=== PATIENT | female | born 1955 | race Caucasian/White ===

== ENCOUNTER 2020-08-21 09:51 | Outpatient (CLI) | payer OTHER ==
[~2020-08-21] VITALS: Ht 167.7 cm; Wt 60.1 kg
[2020-08-21 10:04] VITALS: BP 133/80
--- NOTE | 2020-08-21 10:51 | Diagnostic Imaging Report ---
INDICATION: Preop tongue mass. EXAMINATION: PA and lateral chest. FINDINGS: The heart size and pulmonary vascularity are normal. The lungs are clear. There are no effusions or pneumothoraces. IMPRESSION: Negative chest. Dictated by: Dictated on workstation # [id number]
== END 2020-08-21 10:45 | disposition home or self-care (01) ==
LOC: PREOP 09:51
PROVIDERS: ATTEND Otolaryngology Otolaryngology/Facial Plastic Surgery
DX: Z01.812 Encounter for preprocedural laboratory examination (principal); K14.8 Other diseases of tongue
CPT/HCPCS: 71046; 87081; 93005

== ENCOUNTER 2020-08-25 07:57 | Day surgery (SDC) | payer OTHER ==
[~2020-08-25] VITALS: Ht 167.7 cm; Wt 60.1 kg
[2020-08-25] VITALS (10 sets, daily range): BP systolic 124–144; BP diastolic 71–81
[2020-08-25] MEDS ORDERED: LACTATED RINGERS 1,000 ML IV PRN (08:15)
[2020-08-25] MEDS ORDERED: ONDANSETRON 4 MG/2 ML (SDV) Z0FRAN ONE ×3 (08:15→11:24)
[2020-08-25] MEDS ORDERED: ONDANSETRON 4 MG/2 ML (SDV) Z0FRAN IV ONE (08:30)
[2020-08-25] MEDS ORDERED: GLYCOPYRROLATE 0.2 MG/ML (ROBINUL) 2 ML VIAL ONE (09:15)
[2020-08-25] MEDS ORDERED: proPOfol 200 MG/20 ML (DIPRIVAN) VIAL IV ONE (09:15)
[2020-08-25] MEDS ORDERED: NEOSTIGMINE 3 MG/3 ML VIAL ONE (09:15)
[2020-08-25] MEDS ORDERED: LIDOCAINE PF 2% 5 ML (XYLOCAINE) VIAL ONE (09:15)
[2020-08-25] MEDS ORDERED: ROCURONIUM 10 MG/ML 5 ML SYRINGE IV ONE (09:15)
[2020-08-25] MEDS ORDERED: MIDAZOLAM 2 MG/2 ML (VERSED) VIAL ONE (09:15)
[2020-08-25] MEDS ORDERED: SEVOFLURANE (ULTANE) 15 ML INHAL SOLN ONE (09:15)
[2020-08-25] MEDS ORDERED: fentaNYL INJ 100 MCG/2 ML AMP ONE (09:15)
[2020-08-25] MEDS ORDERED: LIDOCAINE/EPI 1%-1:100,000 (XYLOCAINE) 20ML ONE (09:39)
--- NOTE | 2020-08-25 11:10 | Progress Note-Pre Operative ---
Pre-Operative Progress Note H&P Reviewed The H&P was reviewed, patient examined and no changes noted. Date Seen by Provider: Aug 25, 2020 Time Seen by Provider: 10:15 Date H&P Reviewed: Aug 25, 2020 Time H&P Reviewed: 10:15 Pre-Operative Diagnosis: Left Nasoharyngeal Mass, Left Base of Tongue Mass JAYME HIDALGO MD Aug 25, 2020 11:10
[2020-08-25] MEDS ORDERED: HYDROcodone/APAP 5 MG/325 MG (LORTAB) TAB PO PRN (11:15)
[2020-08-25] MEDS ORDERED: ACETAMINOPHEN 325 MG TABLET PO PRN (11:15)
[2020-08-25] MEDS ORDERED: PROMETHAZINE INJ 25 MG/ML (PHENERGAN) AMP IV PRN (11:15)
[2020-08-25] MEDS ORDERED: ACHD5005 PO (12:24)
--- NOTE | 2020-08-31 07:39 | Anesthesia-General Post-Op ---
General Significant Intra-Op Events Notes late entry 08/25/20 @ 1200 Patient Condition Mental Status/LOC: Same as Preop Cardiovascular: Satisfactory Nausea/Vomiting: Absent Respiratory: Satisfactory Pain: Controlled Complications: Absent Post Op Complications Complications None Follow Up Care/Instructions Patient Instructions None needed. Anesthesia/Patient Condition Patient Condition Patient is doing well, no complaints, stable vital signs, no apparent adverse anesthesia problems. No complications reported per nursing. JOSE EDUARDO MALDONADO CRNA Aug 31, 2020 07:39
== END 2020-08-25 13:30 | disposition home or self-care (01) ==
LOC: SDC 07:57
PROVIDERS: ATTEND Otolaryngology Otolaryngology/Facial Plastic Surgery
DX: K14.8 Other diseases of tongue (principal); R59.0 Localized enlarged lymph nodes
CPT/HCPCS: 88184; 88185